=== PATIENT | female | born 1985 ===

== ENCOUNTER → 2025-06-07 16:12 | Outpatient (REF) | payer BC, SELFPAY | LOC: DHSLP 16:12 | PROVIDERS: ATTENDING PHYSICIAN Internal Medicine Critical Care Medicine | DX: G47.19 Other hypersomnia (principal); R06.83 Snoring | CPT/HCPCS: 95810 ==

== ENCOUNTER → 2025-06-08 07:00 | Outpatient (REF) | payer BC, SELFPAY | LOC: DHSLP 07:00 | PROVIDERS: ATTENDING PHYSICIAN Internal Medicine Critical Care Medicine | DX: G47.11 Idiopathic hypersomnia with long sleep time (principal) | CPT/HCPCS: 95805 ==